=== PATIENT | female | born 1950 | race Caucasian/White ===

== ENCOUNTER → 2016-06-13 | Outpatient (CLI) | payer MEDICARE ==
[2016-06-13 10:31] LABS: Basophils # (A) 0.1 k/uL (0-0.2); Basophils % (A) 1 %; CH 31.8; CHCM 33.6; Eosinophils # (A) 0.1 k/uL (0-0.7); Eosinophils % (A) 2 %; HCT 44.9 % (34.0-46.0); HDW 2.41; Luc # (Auto) 0.09; Luc % (Auto) 2; Lymphocytes # (A) 1.8 k/uL (1.0-4.8); Lymphocytes % (A) 37 %; MCH 31.8 pg (25.0-35.0); MCHC 33.4 g/dL (31.0-37.0); MCV 95.1 fL (80.0-100.0); Mean Platelet Volume 7.3; Monocytes # (A) 0.3 k/uL (0-1.0); Monocytes % (A) 6 %; Neutrophils # (A) 2.6 k/uL (1.3-7.7); Neutrophils % (A) 52 %; RBC 4.72 m/uL (3.80-5.40); RDW 12.5 % (11.5-15.5); WBC (Perox) 4.84
[2016-06-13 10:36] LABS: ALT 32 U/L (9-52); AST 29 U/L (14-36); Alkaline Phosphatase 48 U/L (38-126); Anion Gap 11 mmol/L; Blood Urea Nitrogen 9 mg/dL (7-17); Calcium 9.8 mg/dL (8.4-10.2); Carbon Dioxide 28 mmol/L (22-30); Chloride 106 mmol/L (98-107); Cholesterol 130 mg/dL (<200); Glucose 137 mg/dL (74-99); HDL Cholesterol 52 mg/dL (40-60); Non-African American GFR(MDRD) >60 (>60 ml/min/1.73 sqM); Potassium 4.4 mmol/L (3.5-5.1); Sodium 145 mmol/L (137-145); Total Bilirubin 1.7 mg/dL (0.2-1.3); Total Protein 7.4 g/dL (6.3-8.2); Triglycerides 169 mg/dL (<150)
[2016-06-13 13:03] LABS: Hemoglobin A1C 7.6 % (4.2-6.1)
== END | disposition home or self-care (01) ==
LOC: LABWHC1 09:46
PROVIDERS: ATTEND Family Medicine
DX: E11.9 Type 2 diabetes mellitus without complications (principal)
CPT/HCPCS: 36415; 80053; 80061; 83036; 85025

== ENCOUNTER → 2016-08-10 | Outpatient (CLI) | payer MEDICARE ==
--- NOTE | 2016-08-16 08:32 | MM ---
Reason for exam: screening (asymptomatic). Last mammogram was performed 1 year ago. History: Patient is postmenopausal, history of other cancer, and had first child at age 32. Took hormonal contraceptives for 6 years. Took estrogen for 1 year. Physical Findings: A clinical breast exam by your physician is recommended on an annual basis and results should be correlated with mammographic findings. MG 3D Screening Mammo W/Cad Bilateral CC and MLO view(s) were taken. Prior study comparison: August 09, 2015, bilateral MG 3d screening mammo w/cad. There are scattered fibroglandular densities. No significant changes when compared with prior studies. ASSESSMENT: Benign, BI-RAD 2 RECOMMENDATION: Routine screening mammogram of both breasts in 1 year.
== END | disposition home or self-care (01) ==
LOC: RADMAMWWP 07:54
PROVIDERS: ATTEND Obstetrics & Gynecology
DX: Z12.31 Encounter for screening mammogram for malignant neoplasm of breast (principal)
CPT/HCPCS: 77063; G0202

== ENCOUNTER → 2016-09-13 | Outpatient (CLI) | payer MEDICARE ==
[2016-09-13 11:20] LABS: Basophils # (A) 0.1 k/uL (0-0.2); Basophils % (A) 1 %; CHCM 33.8; Eosinophils # (A) 0.5 k/uL (0-0.7); Eosinophils % (A) 8 %; HDW 2.44; Luc # (Auto) 0.16; Luc % (Auto) 3; Lymphocytes % (A) 36 %; MCH 31.1 pg (25.0-35.0); MCHC 32.7 g/dL (31.0-37.0); MCV 95.1 fL (80.0-100.0); Mean Platelet Volume 7.8; Monocytes # (A) 0.4 k/uL (0-1.0); Monocytes % (A) 7 %; Neutrophils # (A) 2.6 k/uL (1.3-7.7); Neutrophils % (A) 46 %; RBC 4.52 m/uL (3.80-5.40); RDW 13.2 % (11.5-15.5); WBC 5.7 k/uL (3.8-10.6); WBC (Perox) 6.03
[2016-09-13 11:43] LABS: ALT 31 U/L (9-52); AST 23 U/L (14-36); Alkaline Phosphatase 62 U/L (38-126); Anion Gap 10 mmol/L; Blood Urea Nitrogen 13 mg/dL (7-17); Calcium 9.5 mg/dL (8.4-10.2); Carbon Dioxide 28 mmol/L (22-30); Chloride 104 mmol/L (98-107); Cholesterol 128 mg/dL (<200); Glucose 123 mg/dL (74-99); HDL Cholesterol 48 mg/dL (40-60); Non-African American GFR(MDRD) >60 (>60 ml/min/1.73 sqM); Potassium 4.4 mmol/L (3.5-5.1); Sodium 142 mmol/L (137-145); Total Bilirubin 1.7 mg/dL (0.2-1.3); Triglycerides 126 mg/dL (<150)
[2016-09-13 14:00] LABS: Hemoglobin A1C 7.3 % (4.2-6.1)
== END | disposition home or self-care (01) ==
LOC: LABWHC1 10:44
PROVIDERS: ATTEND Family Medicine
DX: E11.9 Type 2 diabetes mellitus without complications (principal)
CPT/HCPCS: 36415; 80053; 80061; 83036; 85025

== ENCOUNTER → 2016-09-19 | Outpatient (CLI) | payer MEDICARE ==
--- NOTE | 2016-09-19 11:54 | ECHOF ---
Referral Reason:I10 htn MEASUREMENTS -------- HEIGHT: 160.0 cm WEIGHT: 70.8 kg BP: IVSd: 1.2 cm (0.6 - 1.1) LVIDd: 4.9 cm (3.9 - 5.3) LVPWd: 1.0 cm (0.6 - 1.1) IVSs: 1.4 cm LVIDs: 3.8 cm LVPWs: 1.3 cm LA Diam: 3.4 cm (2.7 - 3.8) LAESV Index (A-L): 27.70 ml/m Ao Diam: 2.6 cm (2.0 - 3.7) AV Cusp: 1.3 cm (1.5 - 2.6) LA Diam: 3.4 cm (2.7 - 3.8) MV EXCURSION: 17.701 mm (> 18.000) MV EF SLOPE: 107 mm/s (70 - 150) EPSS: 0.3 cm MV E Barry: 0.70 m/s MV DecT: 227 ms MV A Barry: 1.04 m/s MV E/A Ratio: 0.68 RAP: 5.00 mmHg RVSP: 21.27 mmHg FINDINGS -------- Sinus rhythm. This was a technically good study. LV size, wall thickness and systolic function are normal, with an EF greater than 55%. The right ventricle is normal in size. Normal LA size by volume 22+/-6 ml/m2. The right atrial size is normal. The aortic valve is trileaflet, and appears structurally normal. No aortic stenosis or regurgitation. Mild mitral regurgitation is present. Mild tricuspid regurgitation present. There is no evidence of pulmonary hypertension. The right ventricular systolic pressure, as measured by Doppler, is 21.27mmHg. There is no pulmonic regurgitation present. The aortic root size is normal. There is no pericardial effusion. CONCLUSIONS -------- 1. LV size, wall thickness and systolic function are normal, with an EF greater than 55%. 2. Mild mitral regurgitation is present. 3. Mild tricuspid regurgitation present. 4. There is no evidence of pulmonary hypertension. 5. The right ventricular systolic pressure, as measured by Doppler, is 21.27mmHg. 6. There is no pulmonic regurgitation present. KNOCKUP WORKER: Roopa Jolly [facility]
--- NOTE | 2016-09-22 12:48 | HM ---
24 HOUR DCG REPORT Patient in her diary did not have any entries. Predominant rhythm appears to be sinus with a heart rate ranging from 45 to 115 beats per minute with average heart rate of 63 beats per minute. Isolated PAC's and PVC's were noted. There were no evidence of any significant SVT, VT or bradyarrhythmia. There were no evidence of any significant pauses. Sinus rhythm with sinus arrhythmias was noted. There was some baseline artifact noted. Average heart rate was 63 beats per minute. One episode at 6:42 p.m. of about 6 beats in a row which seems to be like a paradoxical atrial tachycardia. FINAL IMPRESSION: Predominant rhythm is sinus with the average heart rate of 63 beats per minute. One short run of PAT noted. No significant ventricular arrhythmia or bradycardia was noted. Patient did not report any symptoms. MTDD
== END | disposition home or self-care (01) ==
LOC: RADECHMAIN 10:30
PROVIDERS: ATTEND Family Medicine
DX: I08.1 Rheumatic disorders of both mitral and tricuspid valves (principal); I10 Essential (primary) hypertension
CPT/HCPCS: 93225; 93226; 93306

== ENCOUNTER → 2016-10-13 | Outpatient (CLI) | payer MEDICARE ==
--- NOTE | 2016-10-16 12:52 | BD ---
EXAMINATION TYPE: MG DEXA axial skeleton. DATE OF EXAM: 10/13/2016 COMPARISON: 10.08.2014 DEXA bone scan. CLINICAL HISTORY: M85.9 KNOWN OSTEOPENIA Height: 62 Weight: 158 FRAX RISK QUESTIONS: Alcohol (3 or more units per day): NO Family History (Parent hip fracture): NO Glucocorticoids (More than 3mos): NO (Ex: prednisone, prednisolone, methylprednisolone, dexamethasone, and hydrocortisone). History of Fracture in Adulthood: NO Secondary Osteoporosis: NO 1. Type 1 Diabetes: NO 2. Hyperthyroidism: NO 3. Menopause before 45: NO 4. Malnutrition: NO 5. Chronic liver disease: NO Rheumatoid Arthritis: NO Current Tobacco Use: NO RISK FACTORS HISTORY OF: Family History of Osteoporosis: YES GREAT AUNT MATERNAL Active: YES Diet low in dairy products/other sources of calcium: NO Postmenopausal woman: 47 YRS OLD Lost more than 2 inches in height since high school: NO Hyperparathyroidism: NO Adrenal Insufficiency: NO MEDICATIONS: Thyroid Medications: YES, SYNTHROID How Lon + YRS Additional Medications: BP MEDS, DIABETIC MEDS, STATINS FOR CHOLESTEROL, CALCIUM AND VIT D IN A MULTI VITAMIN Additional History: DIABETIC, HYPERTENSION EXAM MEASUREMENTS: Bone mineral densitometry was performed using the sailsquare System. Bone mineral density as measured about the Lumbar spine is: ----- L1-L4(G/cm2): 1.253 T Score Values are as follows ----- L1: -1.2 ----- L2: 0.1 ----- L3: 1.1 ----- L4: 2.1 ----- L1-L4: 0.6 Bone mineral density has: Increased 8.4% since study of: 10.08.2014 Bone mineral density about the R hip (g/cm2): 0.952 Bone mineral density about the L hip (g/cm2): 1.030 T Score values are as follows: -----R Neck: -1.0 -----L Neck: -0.8 -----R Total: -0.4 -----L Total: 0.2 Bone mineral density has: Decreased -0.8% since study of: 10.08.2014 FRAX %'S: THERE IS A 8.4% CHANCE OF A MAJOR OSTEOPOROTIC FX AND A 0.7% CHANCE OF HIP FX......PROBAB ILITY IN 10 YRS TIME IMPRESSION: Normal (Values between +1 and -1 indicate normal bone mass). Consider repeating this study in 5 year s or sooner if there is some new clinical indication NOTE: T-SCORE=SD OF THE YOUNG ADULT MEAN.
== END | disposition home or self-care (01) ==
LOC: RADBDWWP 07:15
PROVIDERS: ATTEND Obstetrics & Gynecology
DX: M85.80 Other specified disorders of bone density and structure, unspecified site (principal)
CPT/HCPCS: 77080

== ENCOUNTER → 2017-08-14 | Outpatient (CLI) | payer MEDICARE ==
--- NOTE | 2017-08-14 14:07 | MM ---
Reason for exam: screening (asymptomatic). Last mammogram was performed 1 year ago. History: Patient is postmenopausal, history of other cancer, and had first child at age 32. Took hormonal contraceptives for 6 years. Took estrogen for 1 year. Physical Findings: A clinical breast exam by your physician is recommended on an annual basis and results should be correlated with mammographic findings. MG 3D Screening Mammo W/Cad Bilateral CC and MLO view(s) were taken. Prior study comparison: August 10, 2016, bilateral MG 3d screening mammo w/cad. August 09, 2015, bilateral MG 3d screening mammo w/cad. The breast tissue is heterogeneously dense. This may lower the sensitivity of mammography. No significant changes when compared with prior studies. ASSESSMENT: Negative, BI-RAD 1 RECOMMENDATION: Routine screening mammogram of both breasts in 1 year.
== END | disposition home or self-care (01) ==
LOC: RADMAMWWP 06:51
PROVIDERS: ATTEND Obstetrics & Gynecology
DX: Z12.31 Encounter for screening mammogram for malignant neoplasm of breast (principal)
CPT/HCPCS: 77063; 77067

== ENCOUNTER 2017-09-19 11:47 | Observation (INO) | payer MEDICARE ==
[2017-09-19] MEDS ORDERED: ASPIRIN 81 MG PO STA (12:04)
--- NOTE | 2017-09-19 12:06 | ED ---
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 She states is very minimal right now is not made any better or any worse by movement is deep breathing cough. He only thing that she can think of recently have hurt her back when she was needing for a long period time and a somewhat bent over position. No cough phlegm production fevers chills sweats no palpitations no other symptoms. She was seen in outpatient clinic and sent here for further evaluation. MD Complaint: chest pain - Related Data Home Medications Medication Instructions Recorded Confirmed Aspirin EC [Ecotrin Low Dose] 81 mg PO DAILY 09/19/17 09/19/17 Calcium Carbonate/Vitamin D3 1 tab PO DAILY 09/19/17 09/19/17 [Calcium 600-Vit D3 400 Tablet] Levothyroxine Sodium [Synthroid] 50 mcg PO DAILY 09/19/17 09/19/17 Lisinopril [Zestril] 20 mg PO DAILY 09/19/17 09/19/17 [place]-3 Fatty Acids/Fish Oil [Fish 1 cap PO DAILY 09/19/17 09/19/17 Oil 1,000 mg Softgel] Simvastatin 40 mg PO HS 09/19/17 09/19/17 metFORMIN HCL 1,000 mg PO BID 09/19/17 09/19/17 Allergies Allergy/AdvReac Type Severity Reaction Status Date / Time Sulfa (Sulfonamide Allergy Rash/Hives Verified 09/19/17 12:51 Antibiotics) Review of Systems ROS Statement: Those systems with pertinent positive or pertinent negative responses have been documented in the HPI. ROS Other: All systems not noted in ROS Statement are negative. EKG Findings - EKG Results: EKG: interpreted by TIMA, sinus rhythm (Sinus rhythm of 64. Ago 156 QRS duration 82 QT since QTC 420/435 left exodeviation inferior changes PACs) Past Medical History Past Medical History: Diabetes Mellitus, Hyperlipidemia, Hypertension, Thyroid Disorder History of Any Multi-Drug Resistant Organisms: None Reported Past Surgical History: Section, Tonsillectomy Additional Past Surgical History / Comment(s): cyst removal from right wrist Past Psychological History: No Psychological Hx Reported Smoking Status: Never smoker Past Alcohol Use History: Rare Past Drug Use History: None Reported General Exam - General Exam Comments Initial Comments: This is a well-developed well-nourished awake alert oriented 3 female Limitations: no limitations General appearance: alert, in no apparent distress Head exam: Present: atraumatic, normocephalic, normal inspection Eye exam: Present: normal appearance, PERRL, EOMI. Absent: scleral icterus, conjunctival injection, periorbital swelling ENT exam: Present: normal exam, mucous membranes moist Neck exam: Present: normal inspection. Absent: tenderness, meningismus, lymphadenopathy Respiratory exam: Present: normal lung sounds bilaterally. Absent: respiratory distress, wheezes, rales, rhonchi, stridor Cardiovascular Exam: Present: regular rate, normal rhythm, normal heart sounds. Absent: systolic murmur, diastolic murmur, rubs, gallop, clicks GI/Abdominal exam: Present: soft, normal bowel sounds. Absent: distended, tenderness, guarding, rebound, rigid Extremities exam: Present: normal inspection, full ROM, normal capillary refill. Absent: tenderness, pedal edema, joint swelling, calf tenderness Back exam: Present: normal inspection Neurological exam: Present: alert, oriented X3, CN II-XII intact Psychiatric exam: Present: normal affect, normal mood Skin exam: Present: warm, dry, intact, normal color. Absent: rash Course Vital Signs 09/19/17 09/19/17 09/19/17 11:48 12:29 13:00 Temperature 98.5 F 98.8 F Pulse Rate 73 66 61 Respiratory 18 18 16 Rate Blood Pressure 174/83 182/86 171/83 O2 Sat by Pulse 97 98 98 Oximetry 09/19/17 09/19/17 13:53 14:00 Temperature 98.3 F Pulse Rate 63 82 Respiratory 16 16 Rate Blood Pressure 179/75 177/77 O2 Sat by Pulse 99 94 L Oximetry Chest Pain MDM - MDM Review the imaging shows no acute findings. Patient did seem he is some relief from nitroglycerin she'll be admitted I did discuss the case with Dr. Richardson's office. Disposition Clinical Impression: Chest pain, Unstable angina pectoris Disposition: ADMITTED IP TO THIS HOSP Condition: Stable Referrals: Beny Richardson MD [Primary Care Provider] - 1-2 days
[2017-09-19 12:31] LABS: Basophils # (A) 0.1 k/uL (0-0.2); Basophils % (A) 1 %; Eosinophils # (A) 0.2 k/uL (0-0.7); Eosinophils % (A) 3 %; HCT 40.2 % (34.0-46.0); HGB 13.5 gm/dL (11.4-16.0); Lymphocytes % (A) 31 %; MCH 30.9 pg (25.0-35.0); MCHC 33.5 g/dL (31.0-37.0); MCV 92.3 fL (80.0-100.0); Mean Platelet Volume 7.3; Monocytes # (A) 0.4 k/uL (0-1.0); Monocytes % (A) 7 %; Neutrophils # (A) 3.6 k/uL (1.3-7.7); Neutrophils % (A) 57 %; Platelet Count 190 k/uL (150-450); RBC 4.36 m/uL (3.80-5.40); RDW 13.2 % (11.5-15.5); WBC 6.5 k/uL (3.8-10.6)
[2017-09-19 12:44] LABS: ALT 24 U/L (9-52); AST 26 U/L (14-36); Albumin 4.5 g/dL (3.5-5.0); Alkaline Phosphatase 52 U/L (38-126); Amylase 51 U/L (30-110); Anion Gap 10 mmol/L; Blood Urea Nitrogen 14 mg/dL (7-17); Calcium 9.5 mg/dL (8.4-10.2); Carbon Dioxide 24 mmol/L (22-30); Chloride 107 mmol/L (98-107); Glucose 148 mg/dL (74-99); Lipase 71 U/L (23-300); Magnesium 1.6 mg/dL (1.6-2.3); Potassium 4.5 mmol/L (3.5-5.1); Sodium 141 mmol/L (137-145); Total Bilirubin 1.2 mg/dL (0.2-1.3); Total Protein 7.2 g/dL (6.3-8.2)
--- NOTE | 2017-09-19 12:44 | XR ---
EXAMINATION TYPE: XR chest 2V DATE OF EXAM: 09/19/2017 COMPARISON: 12/08/2010 HISTORY: 67-year-old female with chest pain TECHNIQUE: PA and lateral views FINDINGS: Heart upper limits of normal in size. Mild elongation thoracic aorta. Strandy atelectasis in the lowe r lungs. IMPRESSION: No acute cardiopulmonary process.
[2017-09-19 12:46] LABS: D-Dimer 0.42 mg/L FEU (<0.60); Partial Thromboplastin Time 22.6 sec (22.0-30.0); Prothrombin Time 9.6 sec (9.0-12.0)
[2017-09-19 12:54] LABS: Creatine Kinase 34 U/L (30-135)
[2017-09-19 13:07] LABS: Creatine Kinase MB 0.5 ng/mL (0.0-2.4); Troponin I <0.012 ng/mL (0.000-0.034)
[2017-09-19] MEDS ORDERED: NITROGLYCERIN SL TABS 0.4 MG TAB SUBLINGUAL STA (13:33)
[2017-09-19] MEDS ORDERED: HEPARIN SOD,PORK IN 0.45% NACL 25,000 UNIT in 0.45% NACL 1 500ML.BAG IV SCH (15:45)
[2017-09-19] MEDS ORDERED: HEPARIN SODIUM,PORCINE 5,000 UNIT/ML 1 ML VIAL IV ONE (15:45)
[2017-09-19] MEDS ORDERED: NITROGLYCERIN SL TABS 0.4 MG TAB SUBLINGUAL PRN (15:45)
[2017-09-19] MEDS: SODIUM CHLORIDE 0.9% 1,000 ML IV SCH (18:21)
[2017-09-19] MEDS: INSULIN ASPART 100 UNIT/ML 1 ML 10 ML VIAL SQ SCH ×2 (19:48→20:13)
[2017-09-19 19:59] LABS: Creatine Kinase 31 U/L (30-135)
[2017-09-19 20:11] LABS: Creatine Kinase MB 0.4 ng/mL (0.0-2.4); Troponin I <0.012 ng/mL (0.000-0.034)
[2017-09-19 20:14] LABS: Glucose,Whole Blood 115 mg/dL (75-99)
[2017-09-19] MEDS: ATORVASTATIN 20 MG TAB PO SCH (20:16)
[2017-09-19] MEDS: metFORMIN 500 MG TAB PO SCH (20:16)
[2017-09-20 02:22] LABS: Creatine Kinase 25 U/L (30-135)
[2017-09-20 02:36] LABS: Creatine Kinase MB 0.3 ng/mL (0.0-2.4); Troponin I <0.012 ng/mL (0.000-0.034)
[2017-09-20] MEDS: LEVOTHYROXINE 50 MCG TAB PO SCH (06:10)
[2017-09-20 06:43] LABS: Glucose,Whole Blood 138 mg/dL (75-99)
--- NOTE | 2017-09-20 07:23 | P.CRDCN ---
History of Present Illness Consult date: 09/20/17 Chief complaint: Chest discomfort History of present illness: This is a pleasant 67-year-old female patient with a past medical history significant for diabetes, hypertension, dyslipidemia, presented to the emergency room complaining of chest discomfort. She was in her usual state of health until the day before yesterday when she was sitting at home and she started experiencing discomfort in between her shoulders radiated to the front of the chest. She described the discomfort as a dull kind of discomfort. No radiation to the arm or neck or shoulders. No associated symptoms whatsoever like sweating, shortness of breath, dizziness or lightheadedness, nausea or vomiting, or syncope. The discomfort lasted for about an hour and she presented to an urgent care in [place] then she was referred to the emergency department. She has been pain free since she was admitted to the hospital. The EKG showed sinus rhythm without any ischemic changes. The cardiac enzymes were checked and came in to be unremarkable. Interval of past medical history, as I mentioned earlier she does have diabetes , hypertension, dyslipidemia. The patient does not smoke. She does not have any premature coronary artery disease in her family. Past Medical History Past Medical History: Diabetes Mellitus, Hyperlipidemia, Hypertension, Thyroid Disorder Additional Past Medical History / Comment(s): start of cataracts piotr eyes, wears a bite splint History of Any Multi-Drug Resistant Organisms: None Reported Past Surgical History: Section, Tonsillectomy Additional Past Surgical History / Comment(s): cyst removal from right wrist, colonoscopy. Past Anesthesia/Blood Transfusion Reactions: Motion Sickness Smoking Status: Never smoker - Past Family History Mother Additional Family Medical History / Comment(s): pacemaker Father Family Medical History: Congestive Heart Failure (CHF), Diabetes Mellitus, Myocardial Infarction (MT) Additional Family Medical History / Comment(s): pacemaker Medications and Allergies Home Medications Medication Instructions Recorded Confirmed Type Aspirin EC [Ecotrin Low Dose] 81 mg PO DAILY 09/19/17 09/19/17 History Calcium Carbonate/Vitamin D3 1 tab PO DAILY 09/19/17 09/19/17 History [Calcium 600-Vit D3 400 Tablet] Levothyroxine Sodium [Synthroid] 50 mcg PO DAILY 09/19/17 09/19/17 History Lisinopril [Zestril] 20 mg PO DAILY 09/19/17 09/19/17 History [place]-3 Fatty Acids/Fish Oil [Fish 1 cap PO DAILY 09/19/17 09/19/17 History Oil 1,000 mg Softgel] Simvastatin 40 mg PO HS 09/19/17 09/19/17 History metFORMIN HCL 1,000 mg PO BID 09/19/17 09/19/17 History Allergies Allergy/AdvReac Type Severity Reaction Status Date / Time Sulfa (Sulfonamide Allergy Rash/Hives Verified 09/19/17 19:59 Antibiotics) Physical Exam Vitals: Vital Signs Temp Pulse Pulse Resp BP BP Pulse Ox 09/20/17 04:00 98.1 F 71 16 114/70 97 09/19/17 23:54 16 09/19/17 23:24 97.9 F 84 16 156/82 97 09/19/17 20:00 98.2 F 60 16 170/80 96 09/19/17 18:47 97.8 F 70 16 152/75 98 09/19/17 18:01 97.9 F 62 16 155/72 99 09/19/17 17:00 16 09/19/17 14:00 98.3 F 82 16 177/77 94 L 09/19/17 13:53 63 16 179/75 99 09/19/17 13:00 98.8 F 61 16 171/83 98 09/19/17 12:29 66 18 182/86 98 09/19/17 11:48 98.5 F 73 18 174/83 97 Intake and Output 09/19/17 09/20/17 09/20/17 22:59 06:59 14:59 Intake Total 141.746 Balance 141.746 Intake: Intake, IV Titration 141.746 Amount Heparin Sod,Pork in 0.45% 141.746 NaCl 25,000 unit In 0.45 % NaCl 1 500ml.bag @ 12 UNITS/KG/HR 18.61 mls/hr IV .Q24H K[facility] Rx#: [id number] Other: # Voids 1 - Constitutional General appearance: no acute distress - Respiratory Respiratory: bilateral: CTA - Cardiovascular Rhythm: regular Heart sounds: normal: S1, S2 Results 09/19/17 12:15 09/19/17 12:15 Cardiac Enzymes 09/19/17 09/19/17 09/19/17 Range/Units 12:15 12:15 19:00 AST 26 (14-36) U/L CK-MB (CK-2) 0.5 0.4 (0.0-2.4) ng/mL Troponin I <0.012 <0.012 (0.000-0.034) ng/mL 09/20/17 Range/Units 01:30 AST (14-36) U/L CK-MB (CK-2) 0.3 (0.0-2.4) ng/mL Troponin I <0.012 (0.000-0.034) ng/mL Coagulation 09/19/17 09/20/17 Range/Units 12:15 01:30 PT 9.6 (9.0-12.0) sec APTT 22.6 40.2 H (22.0-30.0) sec CBC 09/19/17 Range/Units 12:15 WBC 6.5 (3.8-10.6) k/uL RBC 4.36 (3.80-5.40) m/uL Hgb 13.5 (11.4-16.0) gm/dL Hct 40.2 (34.0-46.0) % Plt Count 190 (150-450) k/uL Comprehensive Metabolic Panel 09/19/17 Range/Units 12:15 Sodium 141 (137-145) mmol/L Potassium 4.5 (3.5-5.1) mmol/L Chloride 107 (98-107) mmol/L Carbon Dioxide 24 (22-30) mmol/L BUN 14 (7-17) mg/dL Creatinine 0.61 (0.52-1.04) mg/dL Glucose 148 H (74-99) mg/dL Calcium 9.5 (8.4-10.2) mg/dL AST 26 (14-36) U/L ALT 24 (9-52) U/L Alkaline Phosphatase 52 (38-126) U/L Total Protein 7.2 (6.3-8.2) g/dL Albumin 4.5 (3.5-5.0) g/dL Current Medications Generic Name Dose Route Start Last Admin Trade Name Freq PRN Reason Stop Dose Admin Aspirin 325 mg 09/20/17 09:00 Aspirin PO DAILY [facility] Atorvastatin Calcium 20 mg 09/19/17 21:00 09/19/17 20:16 Lipitor PO 20 mg HS [facility] Administration Calcium Carbonate 1 each 09/20/17 09:00 Oscal 500+D PO DAILY [facility] Heparin Sodium/Sodium Chloride 500 mls @ 18.61 mls/hr 09/19/17 15:45 02:17 25,000 unit/ Sodium Chloride IV 14 units/kg/hr .Q24H KIM 21.71 mls/hr Titration Protocol 12 UNITS/KG/HR Sodium Chloride 1,000 mls @ 20 mls/hr 09/19/17 15:45 09/19/17 18:21 Saline 0.9% IV 20 mls/hr .Q24H KIM Administration Insulin Aspart 0 unit 09/19/17 17:30 09/19/17 20:13 Novolog SQ Not Given ACHS [facility] Protocol Levothyroxine Sodium 50 mcg 09/20/17 06:30 09/20/17 06:10 Synthroid PO 50 mcg DAILY@0630 K[facility] Administration Lisinopril 20 mg 09/20/17 09:00 Zestril PO DAILY [facility]IM Metformin HCl 1,000 mg 09/19/17 17:30 09/19/17 20:16 Glucophage PO 1,000 mg AC-BID KIM Administration Nitroglycerin 0.4 mg 09/19/17 15:45 Nitrostat SUBLINGUAL Q5M PRN Chest Pain Intake and Output 09/19/17 09/20/17 09/20/17 22:59 06:59 14:59 Intake Total 141.746 Balance 141.746 Intake: Intake, IV Titration 141.746 Amount Heparin Sod,Pork in 0.45% 141.746 NaCl 25,000 unit In 0.45 % NaCl 1 500ml.bag @ 12 UNITS/KG/HR 18.61 mls/hr IV .Q24H [facility] Rx#: [id number] Other: # Voids 1 09/19/17 12:15 09/19/17 12:15 Assessment and Plan Assessment: Assessment #1 chest discomfort #2 diabetes #3 hypertension #4 dyslipidemia Plan #1 the patient was ruled out for acute coronary event #2 I did recommend obtaining an echocardiogram was Doppler #3 also obtain a stress test to rule out any severe underlying CAD #4 follow-up with the patient. Thank you for allowing us participate in her care and we will continue following up with the patient
[2017-09-20] MEDS ORDERED: ASPIRIN 325 MG TAB PO SCH (09:00)
[2017-09-20] MEDS ORDERED: NON-FORMULARY DRUG (Omega-3 Fatty Acids/Fish Oil [Fish Oil 1,000 Mg Softgel] 1 CAP) PO SCH (09:00)
[2017-09-20] MEDS ORDERED: AMINOPHYLLINE 500 MG/20 ML VIAL IV PRN (09:12)
[2017-09-20] MEDS ORDERED: REGADENOSON 0.4 MG/5 ML SYRINGE IV ONE (09:12)
[2017-09-20 09:21] LABS: HDL Cholesterol 54 mg/dL (40-60); Triglycerides 229 mg/dL (<150)
[2017-09-20 09:23] LABS: Cholesterol 159 mg/dL (<200); LDL Cholesterol,Calculated 59 mg/dL (0-99)
[2017-09-20] MEDS ORDERED: AMINOPHYLLINE 500 MG/20 ML VIAL IV ONE (11:05)
[2017-09-20] MEDS: INSULIN ASPART 100 UNIT/ML 1 ML 10 ML VIAL SQ SCH ×4 (11:57→20:04)
[2017-09-20] MEDS: metFORMIN 500 MG TAB PO SCH ×2 (11:59→17:37)
[2017-09-20] MEDS: CALCIUM CARB-VIT D 500MG-200UN 1 EACH TAB PO SCH (12:00)
[2017-09-20] MEDS: LISINOPRIL 20 MG TAB PO SCH (12:00)
--- NOTE | 2017-09-20 12:06 | ECHOF ---
Referral Reason:Chest pain MEASUREMENTS -------- HEIGHT: 160.0 cm WEIGHT: 77.6 kg BP: 114/70 IVSd: 1.1 cm (0.6 - 1.1) LVIDd: 4.3 cm (3.9 - 5.3) LVPWd: 1.3 cm (0.6 - 1.1) IVSs: 1.9 cm LVIDs: 3.2 cm LVPWs: 1.8 cm Ao Diam: 3.1 cm (2.0 - 3.7) AV Cusp: 1.9 cm (1.5 - 2.6) LA Diam: 3.3 cm (2.7 - 3.8) MV EXCURSION: 12.148 mm (> 18.000) MV EF SLOPE: 64 mm/s (70 - 150) EPSS: 0.9 cm MV E Barry: 0.85 m/s MV DecT: 299 ms MV A Barry: 1.14 m/s MV E/A Ratio: 0.75 RAP: 5.00 mmHg RVSP: 20.18 mmHg FINDINGS -------- Sinus rhythm. This was a technically good study. The left ventricular size is normal. There is mild concentric left ventricular hypertrophy. Overa ll left ventricular systolic function is normal with, an EF between 55 - 60 %. The right ventricle is normal in size and function. The left atrium is normal in size. The right atrium is normal in size. The aortic valve is trileaflet and appears structurally normal. There is trace mitral regurgitation. Trace tricuspid regurgitation present. The right ventricular systolic pressure, as measured by Dopp ler, is 20.18mmHg. Pulmonic valve appears structurally normal. The aortic root size is normal. Normal inferior vena cava with normal inspiratory collapse consistent with estimated right atrial pre ssure of 5 mmHg. The pericardium is normal. CONCLUSIONS -------- 1. Sinus rhythm. 2. This was a technically good study. 3. The left ventricular size is normal. 4. There is mild concentric left ventricular hypertrophy. 5. Overall left ventricular systolic function is normal with, an EF between 55 - 60 %. 6. The right ventricle is normal in size and function. 7. The left atrium is normal in size. 8. The right atrium is normal in size. 9. The aortic valve is trileaflet and appears structurally normal. 10. There is trace mitral regurgitation. 11. Trace tricuspid regurgitation present. 12. The right ventricular systolic pressure, as measured by Doppler, is 20.18mmHg. 13. Pulmonic valve appears structurally normal. 14. The aortic root size is normal. 15. Normal inferior vena cava with normal inspiratory collapse consistent with estimated right atrial pressure of 5 mmHg. 16. The pericardium is normal. LAUNDRY OPERATOR FINISHING: Carolyn Quiñones RDCS
--- NOTE | 2017-09-20 12:16 | NM ---
EXAMINATION TYPE: NM stress lexiscan cardiolite DATE OF EXAM: 09/20/2017 COMPARISON: NONE HISTORY: Chest pain TECHNIQUE: After the intravenous administration of 10.5 mCi Tc 99m Sestamibi - Cardiolite resting SP ECT images acquired 50 minutes post injection. The patient received 0.4mg Lexiscan, 25.6 mCi Tc 99m Sestamibi - Stress images obtained [address] injection FINDINGS: Review of stress and rest SPECT images demonstrates small single segment lateral wall fixed defect wi th moderate approximately 6 segment reversible defect along the anterolateral wall in the distributio n of the circumflex coronary artery. Additional small defect is seen within the anterior septal wall that is reversible. Gated analysis shows normal wall motion with an estimated left ventricular eject ion fraction of 62 %. TID is calculated at 1.04, within normal limits. IMPRESSION: 1. 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 2. Small reversible defect in the distribution of the left anterior descending coronary artery. A Yellow level critical message alert has been initiated for Santino Manriquez via the Impressto tical Results System on 09/20/2017 12:14 PM. This message alert has been sent to Santino Manriquez via the pr eferences provided by the clinician for the receipt of Radiology Critical Findings. Message ID [id number].
[2017-09-20 12:31] LABS: Glucose,Whole Blood 129 mg/dL (75-99)
[2017-09-20] MEDS ORDERED: ALPRAZolam 0.25 MG TAB PO PRN (12:42)
[2017-09-20] MEDS ORDERED: ALPRAZolam 0.5 MG TAB PO PRN (12:42)
[2017-09-20] MEDS ORDERED: NITROGLYCERIN SL TABS 0.4 MG TAB SUBLINGUAL PRN (12:42)
--- NOTE | 2017-09-20 13:47 | EST ---
EXERCISE STRESS DATE OF SERVICE: 09/20/2017 AGE: 67 SEX: Female HT: 63" WT: 171 pounds PROTOCOL: Lexiscan Cardiolite STAGE: DURATION OF EXERCISE: HEART RATE REST: 75 BLOOD PRESSURE REST: 168/88 MAXIMUM HEART RATE ACHIEVED: 118 MAXIMUM BLOOD PRESSURE: 168/88 85% MPHR: 129 100% MPHR: 152 METS: INDICATIONS: Chest pain. CLINICAL INFORMATION: STRESS DATA: Pretesting physical examination showed a heart rate of 75, pressure is 168/88 mmHg. Baseline EKG showed sinus mechanism. A 0.4 mg of Lexiscan was given to patient over 15 seconds per protocol. Max heart rate was 118 beats per minute and maximum pressure was 168/88 mmHg. Clinically, the patient did not have any symptoms and the EKG did not show any significant ST or T wave abnormalities concerning for ischemia. CONCLUSION: 1. Nondiagnostic electrocardiogram stress testing in response to exercise. 2. Please follow up on the Cardiolite portion on separate report from the radiology department. MMODL / IJN: [id number] /
--- NOTE | 2017-09-20 13:56 | HP ---
HISTORY AND PHYSICAL CHIEF COMPLAINTS: Back pain. HISTORY OF PRESENT ILLNESS: This is a 67-year-old woman with a past medical history of multiple medical problems including diabetes, hypertension, hyperlipidemia with hypothyroidism being followed by Dr. Beny Richardson in the outpatient setting, is complaining of low back pain which is dull in character, which radiates to the front. Patient came to [facility] and was admitted for further evaluation and treatment. There is no history of fever, rigors. There is no history of headache, loss of consciousness, seizures. Troponins are negative and a stress test showed possible reversible ischemia. There is no history of fever, rigors. No history of headache or loss of consciousness, seizures. PAST MEDICAL HISTORY: History of diabetes, hypertension, hyperlipidemia, hypothyroidism. MEDICATIONS: Prior to admission include home medications are: 1. Metformin 1000 mg p.o. b.i.d. 2. Simvastatin 40 mg q.h.s. 3. [place]-3 fatty acids p.o. daily. 4. Zestril 20 mg p.o. daily. 5. Synthroid 50 mcg p.o. daily. 6. Calcium with vitamin D p.o. daily. 7. Ecotrin 81 mg p.o. daily. ALLERGIES: Sulfa. FAMILY HISTORY: History of CHF, diabetes mellitus, myocardial infarction and pacemaker in the family. SOCIAL HISTORY: Occasional alcohol. No history of smoking. REVIEW OF SYSTEMS: ENT: No diminished hearing or vision. CARDIOVASCULAR: As mentioned earlier. RESPIRATION: As mentioned earlier. GI: No nausea. : No dysuria. NERVOUS SYSTEM: No numbness weakness. IMMUNOLOGY: No asthma or hayfever. MUSCULOSKELETAL: As mentioned earlier. HEMATOLOGY: No history of anemia. ENDOCRINE: No history of diabetes or hypothyroidism. CONSTITUTIONAL: As mentioned earlier. DERMATOLOGY: Negative. RHEUMATOLOGY: Negative. PSYCHIATRY: As mentioned earlier. PHYSICAL EXAMINATION: Patient is alert and oriented x3. Pulse 59, blood pressure 130/80, respirations 16, temperature 98.2, pulse ox 94% on room air. HEENT: Conjunctivae normal. Oral mucosa moist. Neck is no jugular venous distention. No lymph node enlargement. CARDIOVASCULAR SYSTEM: S1, S2, muffled. RESPIRATION: Breath sounds diminished at the bases, no rhonchi, no crackles. ABDOMEN: Soft, nontender. No mass palpable. LEGS: No edema, no swelling. NERVOUS SYSTEM: Higher functions as mentioned earlier. Moves all four limbs. No focal deficits. SKIN: No rash or bleeding. LABS: CBC normal. Glucose 129, triglycerides 229. ASSESSMENT: 1. Back and chest pain, possible unstable angina. 2. Diabetes mellitus type 2. 3. Hypertension. 4. Hyperlipidemia. 5. Hypothyroidism. 6. History of cataracts. 7. History of section. RECOMMENDATIONS: In this 67-year-old woman who presented with multiple medical issues, will monitor the patient closely. Continue with the current management and continue symptomatic treatment. Follow closely, continue with antiplatelet agents. Closely follow with Cardiology and possible cardiac cath. Guarded prognosis because of multiple complex medical issues. Further recommendations to follow. MMODL / IJN: [id number] /
--- NOTE | 2017-09-20 14:42 | CT ---
EXAMINATION TYPE: CT chest wo con DATE OF EXAM: 09/20/2017 COMPARISON: NONE HISTORY: Back pain radiating to chest. CT DLP: 263.2 mGycm. Automated Exposure Control for Dose Reduction was Utilized. TECHNIQUE: CT scan of the thorax is performed without IV contrast. FINDINGS: LUNGS: The lungs are grossly clear, there is no concerning parenchymal mass or suspicious nodule iden tified. There is a calcified right upper lobe granuloma. There is no pleural effusion or pneumothora x seen. The tracheobronchial tree is patent. MEDIASTINUM: Lack of IV contrast is noted to limit evaluation for mediastinal and especially hilar ad enopathy. There are few prominent lymph nodes measuring 9 mm in the prevascular space, 9 mm in the le ft paratracheal space, and possibly 1.0 cm in the right infrahilar region on series 3 image 33. This density is questioned to represent a lymph node with early ill-defined calcifications. There are no d efinitive greater than 1 cm hilar or mediastinal lymph nodes. No cardiomegaly or pericardial effusi on is seen. Ascending thoracic aorta is within normal limits measuring 3.2 cm as is the main pulmonar y artery measuring 2.6 cm. OTHER: No additional significant abnormality is seen. Small splenule is present adjacent to the rony ve spleen. There is low-attenuation of the hepatic parenchyma most commonly representing hepatic stea tosis. Multilevel degenerative change of the spine is noted. IMPRESSION: 1. No focal consolidation, pneumothorax or thoracic aortic aneurysm. 2. Right infrahilar density possibly related to an early calcifying lymph node (benign pulmonary gran ulomas are seen) that is upper limits of normal and other prominent mediastinal lymph nodes. Short-te rm follow-up is recommended in 3 months to ensure stability. 3. Incidentally noted hepatic steatosis.
[2017-09-20 17:40] LABS: Glucose,Whole Blood 137 mg/dL (75-99)
[2017-09-20 17:44] LABS: Appearance,Urine Clear (Clear); Bilirubin,Urine Negative (Negative); Blood,Urine Negative (Negative); Color,Urine Light Yellow; Glucose,Urine (UA) Negative (Negative); Ketones,Urine Negative (Negative); Leukocyte Esterase,Urine Negative (Negative); Nitrite,Urine Negative (Negative); PH, Urine 6.5 (5.0-8.0); Protein,Urine Negative (Negative); Specific Gravity,Urine 1.012 (1.001-1.035); Urobilinogen,Urine <2.0 mg/dL (<2.0)
[2017-09-20 19:19] VITALS: RESP 18
[2017-09-20] MEDS: SODIUM CHLORIDE 0.9% 1,000 ML IV SCH (19:51)
[2017-09-20] MEDS ORDERED: ACETAMINOPHEN TAB 325 MG TAB PO PRN (19:58)
[2017-09-20] MEDS: ATORVASTATIN 20 MG TAB PO SCH (20:03)
[2017-09-20 20:06] LABS: Glucose,Whole Blood 153 mg/dL (75-99)
[2017-09-20 23:54] VITALS: TEMP 98.2
[2017-09-21] MEDS: INSULIN ASPART 100 UNIT/ML 1 ML 10 ML VIAL SQ SCH ×2 (06:43→14:49)
[2017-09-21] MEDS: metFORMIN 500 MG TAB PO SCH (06:43)
[2017-09-21] MEDS: LEVOTHYROXINE 50 MCG TAB PO SCH (06:48)
[2017-09-21] MEDS: CALCIUM CARB-VIT D 500MG-200UN 1 EACH TAB PO SCH (06:48)
[2017-09-21] MEDS: LISINOPRIL 20 MG TAB PO SCH (06:48)
[2017-09-21] MEDS ORDERED: MIDAZOLAM 2 MG/2 ML VIAL ONE (07:20)
[2017-09-21] MEDS ORDERED: VERAPAMIL 2.5 MG/ML 2 ML AMP ONE (07:20)
--- NOTE | 2017-09-21 07:45 | P.PN ---
Subjective Progress Note Date: 09/21/17 Principal diagnosis: Chest discomfort/abnormal stress test This is a pleasant 67-year-old female patient with a past medical history significant for diabetes, hypertension, dyslipidemia, presented to the emergency room complaining of chest discomfort. She was in her usual state of health until the day before yesterday when she was sitting at home and she started experiencing discomfort in between her shoulders radiated to the front of the chest. She described the discomfort as a dull kind of discomfort. No radiation to the arm or neck or shoulders. No associated symptoms whatsoever like sweating, shortness of breath, dizziness or lightheadedness, nausea or vomiting, or syncope. The discomfort lasted for about an hour and she presented to an urgent care in [place] then she was referred to the emergency department. She has been pain free since she was admitted to the hospital. The EKG showed sinus rhythm without any ischemic changes. The cardiac enzymes were checked and came in to be unremarkable. The patient underwent an echocardiogram which revealed normal LV function without significant valvular abnormalities. She underwent a myocardial perfusion imaging stress test and that revealed myocardial infarction in the distribution of the left circumflex coronary artery with rito-infarct ischemia as well as ischemia in the distribution of the left anterior descending artery. Giving the significant abnormalities on the stress test I do recommend proceeding with a heart catheterization to rule out any severe underlying coronary artery disease. The procedure in details was discussed with the patient and her family at bedside, her daughter and her . The patient is going to undergo a heart catheterization this manager costing. Objective - Vital Signs Vital signs: Vital Signs Temp 98.2 F 09/21/17 03:28 Pulse 60 09/21/17 03:28 Resp 18 09/21/17 03:28 BP 125/64 09/21/17 03:28 Pulse Ox 97 09/21/17 03:28 Intake & Output 09/20/17 09/21/17 09/21/17 18:59 06:59 18:59 Intake Total 300 Balance 300 Weight 77.564 kg Intake: Oral 300 Other: Voiding Method Toilet Toilet # Voids 1 1 - Constitutional General appearance: Present: no acute distress - Respiratory Respiratory: bilateral: CTA - Cardiovascular Rhythm: regular Heart sounds: normal: S1, S2 - Labs CBC & Chem 7: 09/19/17 12:15 08/08/18 12:15 Labs: Abnormal Lab Results - Last 24 Hours (Table) 09/20/17 09/20/17 09/20/17 Range/Units 08:08 12:16 17:27 POC Glucose (mg/dL) 129 H 137 H (75-99) mg/dL Triglycerides 229 H (<150) mg/dL 09/20/17 Range/Units 20:00 POC Glucose (mg/dL) 153 H (75-99) mg/dL Triglycerides (<150) mg/dL Assessment and Plan Assessment: Assessment #1 chest discomfort #2 diabetes #3 hypertension #4 dyslipidemia Plan #1 the patient was ruled out for acute coronary event #2 the abnormalities on the stress test was reviewed with the patient's and her family #3 I am proceeding with a heart catheterization to rule out any severe underlying coronary artery disease. Thank you for allowing us participate in her care and we will continue following up with the patient
[2017-09-21] MEDS ORDERED: HEPARIN SODIUM 1,000 UN/ML (10ML VL) ONE (07:54)
[2017-09-21] MEDS ORDERED: MIDAZOLAM 2 MG/2 ML VIAL IV ONE (08:02)
[2017-09-21] MEDS ORDERED: LIDOCAINE 1% INJ 10MG/ML (20 ML MDV) SQ ONE (08:02)
[2017-09-21] MEDS: VERAPAMIL SYRINGE (5 MG/10 ML) INTRAARTER ONE ×2 (08:04→08:25)
[2017-09-21] MEDS ORDERED: HEPARIN SODIUM 1,000 UN/ML (10ML VL) IV ONE ×2 (08:06→08:22)
[2017-09-21] MEDS ORDERED: RX INFO: IV CONTRAST WAS GIVEN 1 EACH MISC MISCELLANE PRN (08:22)
[2017-09-21] MEDS ORDERED: IOPAMIDOL-370 125ML BTL INJ ONE (08:25)
[2017-09-21] MEDS ORDERED: IV FLUID CONTINUATION 1,000 ML IV ONE (08:26)
[2017-09-21] MEDS ORDERED: SODIUM CHLORIDE 0.9% 1,000 ML IV SCH (08:30)
--- NOTE | 2017-09-21 08:42 | CC ---
CARDIAC CATHETERIZATION REPORT DATE OF SERVICE: September 21, 2017. PERFORMING PHYSICIAN: Santino Manriquez MD, equipment validation specialist. PROCEDURE PERFORMED: 1. Selective right and left coronary angiogram. 2. Left heart catheterization. INDICATION: This is a pleasant 67-year-old female patient with diabetes, hypertension, and dyslipidemia presented to the hospital with chest discomfort. She was ruled out for acute coronary event. She underwent a myocardial perfusion imaging stress test and that revealed infarct in the left circumflex distribution and ischemia in the LAD territory. Because of that, a heart catheterization was recommended. APPROACH: Right radial artery. COMPLICATION: None. LEVEL OF SEDATION: Moderate with sedation length of 18 minutes. PROCEDURE DESCRIPTION: After obtaining an informed consent, the patient was brought to cardiac analyst microbiology lab. The right radial artery was cannulated using micropuncture technique, the micropuncture wire passed easily then I placed a 6-[place] sheath in the right radial artery. I gave the patient after that 2 mg of verapamil IA and and 8000 units of heparin IV. After that I did selective right and left coronary angiogram using JR4 and JL3.5 catheters. Left heart catheterization was performed using a 6-[place] pigtail catheter. The procedure was completed without any complication. SELECTIVE CORONARY ANGIOGRAM: 1. The RCA is a large caliber vessel. It is a dominant vessel. It is angiographically normal. It bifurcates into PDA and PLV branches both are angiographically normal. 2. The left main is normal. It bifurcates into the left circumflex and left anterior descending artery. 3. The left circumflex is a large caliber vessel. It is a nondominant vessel. The left circumflex is angiographically normal. In the midportion gives rise into a large OM branch which bifurcates into 2 separate branches. The left circumflex after that becomes a small caliber vessel. The left circumflex overall is angiographically normal. 4. The LAD: The proximal LAD is normal. Gives rise into the first and second diagonal branches and both are angiographically normal. The mid and distal left LAD appeared to be angiographically normal. HEMODYNAMICS: The left ventricular end-diastolic pressure was 12 mmHg and no gradient was identified across the aortic valve. CONCLUSION: 1. Normal coronary angiogram. 2. Normal left ventricular end-diastolic pressure. POSTPROCEDURE MANAGEMENT: Medical treatment and follow up with the patient. MMODL / IJN: [id number] /
--- NOTE | 2017-09-21 08:48 | LTR ---
September 21, 2017 Re: Jody Gonzalez. Dear Dr. Richardson: Ms. Jody Gonzalez presented to the hospital complaining of chest discomfort and she was ruled out for acute coronary event. She underwent a stress test and that revealed ischemia, but subsequently the heart catheterization did not reveal any coronary artery disease. I want to thank you for allowing me to participate in her care and please do not hesitate to call if you have any question or concern. Sincerely, MD ERIK Mccracken / DONALD: [id number] /
[2017-09-21 08:53] LABS: Glucose,Whole Blood 168 mg/dL (75-99)
[2017-09-21] MEDS ORDERED: SODIUM CHLORIDE 0.9% 1,000 ML in EMPTY BAG 1 BAG IV ONE (09:00)
[2017-09-21] MEDS ORDERED: ATORVASTATIN 80 MG TAB PO ONE (09:00)
[2017-09-21] MEDS ORDERED: ASPIRIN 325 MG TAB PO ONE (09:00)
[2017-09-21 11:17] VITALS: BP 133/66; PULSE 58
[2017-09-21 12:26] LABS: Glucose,Whole Blood 131 mg/dL (75-99)
--- NOTE | 2017-09-22 10:25 | DS ---
DISCHARGE SUMMARY DATE OF SERVICE: 09/22/2017. FINAL DIAGNOSES: 1. Upper back pain and chest pain, possible musculoskeletal, status post cardiac cath showing normal coronary arteries. 2. Diabetes type 2. 3. Right hilar lymph node, small. 4. Hypertension. 5. Hyperlipidemia. 6. Hypothyroidism. 7. History of cataracts. 8. History of section. DISCHARGE CONDITION: The patient is discharged in stable condition with guarded prognosis. HISTORY OF PRESENT ILLNESS: This 67-year-old woman with a past medical history of multiple medical issues, was admitted with upper back discomfort, chest discomfort. Myocardial infarction was ruled out. Cardiac cath was done which was normal. CT scan showed small hilar lymph node, recommend [address] Richardson. PHYSICAL EXAM: On exam, vital signs are stable. CARDIAC: S1 and S2. ABDOMEN: Soft. NERVOUS SYSTEM: No focal deficits. DISCHARGE DIET: Cardiac diet. ACTIVITY: As tolerated. FOLLOWUP: 1. Followup with Dr. Richardson in 2 to 3 days. 2. Followup with sales marketing as advised. MEDICATIONS: 1. Ecotrin 81 mg daily. 2. Calcium carbonate 1 p.o. daily. 3. Synthroid 50 mcg p.o. daily. 4. Zestril 20 mg daily. 5. Metformin 1000 mg p.o. b.i.d. 6. Fish oil 1 p.o. daily. 7. Simvastatin 40 mg at bedtime. Once again, the patient is discharged in stable condition with guarded prognosis. MMODL / IJN: [id number] /
== END 2017-09-21 14:45 ==
LOC: EC 11:47 → 3OBS 15:45
PROVIDERS: ADMIT Family Medicine; ATTEND Family Medicine
DX: R07.89 Other chest pain (principal); M54.5 Low back pain; M54.6 Pain in thoracic spine; I10 Essential (primary) hypertension; E78.5 Hyperlipidemia, unspecified; I89.9 Noninfective disorder of lymphatic vessels and lymph nodes, unspecified; R94.31 Abnormal electrocardiogram [ECG] [EKG]; R94.39 Abnormal result of other cardiovascular function study; E11.9 Type 2 diabetes mellitus without complications; Z82.49 Family history of ischemic heart disease and other diseases of the circulatory system; E03.9 Hypothyroidism, unspecified; H26.9 Unspecified cataract; Z79.899 Other long term (current) drug therapy; Z79.82 Long term (current) use of aspirin; Z79.890 Hormone replacement therapy; Z79.84 Long term (current) use of oral hypoglycemic drugs; Z88.2 Allergy status to sulfonamides
CPT/HCPCS: 99285 ×2; 96366 ×2; 96376; 96365; 36415; 93005; 93017; 93306; 93458; 85379; 83880; 80061; 80053; 82150; 82550 ×2; 82553 ×2; 83690; 83735; 84484 ×2; 85025; 85610; 85730 ×2; 81003; 71046; 71250; 78452; G0378 ×3; C1894; A9500; J2250; J1644 ×3; J0280; J2001; J2785; Q9967

== ENCOUNTER → 2017-09-24 | Outpatient (CLI) | payer MEDICARE ==
[2017-09-24 11:21] LABS: Basophils # (A) 0.1 k/uL (0-0.2); Basophils % (A) 1 %; Eosinophils # (A) 0.1 k/uL (0-0.7); Eosinophils % (A) 3 %; HCT 39.5 % (34.0-46.0); HGB 13.4 gm/dL (11.4-16.0); Lymphocytes # (A) 1.6 k/uL (1.0-4.8); Lymphocytes % (A) 33 %; MCH 31.7 pg (25.0-35.0); MCV 93.2 fL (80.0-100.0); Mean Platelet Volume 7.6; Monocytes # (A) 0.3 k/uL (0-1.0); Monocytes % (A) 7 %; Neutrophils # (A) 2.6 k/uL (1.3-7.7); Neutrophils % (A) 54 %; Platelet Count 186 k/uL (150-450); RBC 4.23 m/uL (3.80-5.40); RDW 13.2 % (11.5-15.5); WBC 4.8 k/uL (3.8-10.6)
[2017-09-24 11:35] LABS: Anion Gap 8 mmol/L; Blood Urea Nitrogen 20 mg/dL (7-17); Calcium 9.5 mg/dL (8.4-10.2); Carbon Dioxide 28 mmol/L (22-30); Chloride 103 mmol/L (98-107); Glucose 215 mg/dL (74-99); Potassium 4.5 mmol/L (3.5-5.1); Sodium 139 mmol/L (137-145)
== END | disposition home or self-care (01) ==
LOC: LABWHC1 10:53
PROVIDERS: ATTEND Nurse Practitioner
DX: R07.9 Chest pain, unspecified (principal)
CPT/HCPCS: 36415; 80048; 85025

== ENCOUNTER → 2017-12-17 | Outpatient (CLI) | payer MEDICARE ==
[2017-12-17 14:12] LABS: Blood Urea Nitrogen 15 mg/dL (7-17)
--- NOTE | 2017-12-17 14:56 | CT ---
EXAMINATION TYPE: CT chest wo/w con DATE OF EXAM: 12/17/2017 COMPARISON: 09/20/2017 HISTORY: enlarged lymph nodes in the chest CT DLP: 668.10 mGycm Automated exposure control for dose reduction was used. CONTRAST: CT scan of the chest is performed without and with IV Contrast, patient injected with 100 mL of Isovu e 300. FINDINGS: LUNGS: The lungs are grossly clear, there is no concerning parenchymal mass or nodule identified. T here is no pleural effusion or pneumothorax seen. The tracheobronchial tree is patent. 3 mm right up per nodule stable. Subsegmental consolidation posteriorly within the lungs are suggestive of dependen t atelectasis. MEDIASTINUM: There again is adenopathy within the mediastinum with the largest lymph node measuring s hort axis of 1 cm. Remaining lymph nodes appear to measure less than 1 cm compatible with shotty son opathy. Findings are stable relative the previous exam. Right-sided infrahilar lymph node with calcif ication measures 1.0 cm and is stable. Shotty adenopathy in the hilum stable OTHER: Hypertrophic and degenerative change of the spine. Correlate for hepatic steatosis. Accessory spleen noted. IMPRESSION: 1. Right infrahilar density likely representing lymph node and mediastinal lymph nodes are stable in size with only a couple lymph node measuring pathologic in short axis of 1 cm. Findings are stable. 2. Stable 3 mm right upper lobe pulmonary nodule.
== END ==
LOC: RADCTMAIN 13:20
PROVIDERS: ATTEND Family Medicine
DX: R91.8 Other nonspecific abnormal finding of lung field (principal)
CPT/HCPCS: 82565; 84520; 71270; 36415; Q9967

== ENCOUNTER → 2018-11-08 | Outpatient (CLI) | payer MEDICARE ==
--- NOTE | 2018-11-08 13:24 | MM ---
Reason for exam: screening (asymptomatic). Last mammogram was performed 1 year and 3 months ago. History: Patient is postmenopausal, has history of other cancer at age 56, and had first child at age 32. Took hormonal contraceptives for 6 years. Took estrogen for 1 year. Physical Findings: A clinical breast exam by your physician is recommended on an annual basis and results should be correlated with mammographic findings. MG 3D Screening Mammo W/Cad Bilateral CC and MLO view(s) were taken. Prior study comparison: August 14, 2017, bilateral MG 3d screening mammo w/cad. August 10, 2016, bilateral MG 3d screening mammo w/cad. The breast tissue is heterogeneously dense. This may lower the sensitivity of mammography. No significant changes when compared with prior studies. ASSESSMENT: Benign, BI-RAD 2 RECOMMENDATION: Routine screening mammogram of both breasts in 1 year.
== END | disposition home or self-care (01) ==
LOC: RADMAMWWP 07:45
PROVIDERS: ATTEND Obstetrics & Gynecology
DX: Z12.31 Encounter for screening mammogram for malignant neoplasm of breast (principal)
CPT/HCPCS: 77063; 77067

== ENCOUNTER → 2019-01-27 | Outpatient (CLI) | payer MEDICARE ==
[2019-01-27 17:26] LABS: African American GFR (CKD) 102.5 (60.0-200.0); Albumin 4.3 g/dL (3.80-4.90); Albumin/Globulin Ratio 2.39 (1.60-3.17); BUN/Creat Ratio 15.71 Ratio (12.00-20.00); Calcium 9.3 mg/dL (8.7-10.3); Globulin 1.8 g/dL (1.6-3.3); Non-African American GFR(CKD) 88.4 (60.0-200.0); Total Bilirubin 1.3 mg/dL (0.2-1.2); Total Protein 6.1 g/dL (6.2-8.2)
[2019-01-27 17:35] LABS: T4, Free (Free Thyroxine) 1.4 ng/dL (0.80-1.80)
[2019-01-27 20:30] LABS: Hemoglobin A1C 7.4 % (4.0-6.0)
== END | disposition home or self-care (01) ==
LOC: LABWHC1 10:52
PROVIDERS: ATTEND Midwife
DX: E11.9 Type 2 diabetes mellitus without complications (principal); E55.9 Vitamin D deficiency, unspecified; I10 Essential (primary) hypertension; E03.9 Hypothyroidism, unspecified
CPT/HCPCS: 36415; 80053; 82043; 82306; 82570; 83036; 84439; 84443; 84481

== ENCOUNTER → 2019-12-15 | Outpatient (CLI) | payer MEDICARE ==
[2019-12-15 12:38] LABS: Basophils # (A) 0.1 k/uL (0-0.2); Basophils % (A) 2 %; Eosinophils # (A) 0.1 k/uL (0-0.7); Eosinophils % (A) 2 %; HCT 42.1 % (34.0-46.0); HGB 13.7 gm/dL (11.4-16.0); Lymphocytes # (A) 1.9 k/uL (1.0-4.8); Lymphocytes % (A) 37 %; MCH 31.8 pg (25.0-35.0); MCHC 32.5 g/dL (31.0-37.0); MCV 97.9 fL (80.0-100.0); Mean Platelet Volume 7.6; Monocytes # (A) 0.3 k/uL (0-1.0); Monocytes % (A) 7 %; Neutrophils # (A) 2.6 k/uL (1.3-7.7); Neutrophils % (A) 51 %; Platelet Count 155 k/uL (150-450); RDW 12.3 % (11.5-15.5); WBC 5.1 k/uL (3.8-10.6)
[2019-12-15 19:57] LABS: T4, Free (Free Thyroxine) 1.3 ng/dL (0.80-1.80)
[2019-12-15 20:05] LABS: African American GFR (CKD) 86.6 (60.0-200.0); Albumin 4.4 g/dL (3.80-4.90); Albumin/Globulin Ratio 2.2 (1.60-3.17); BUN/Creat Ratio 13.75 Ratio (12.00-20.00); Calcium 9.6 mg/dL (8.7-10.3); Chol/HDL Ratio 2.73; LDL Cholesterol,Calculated 51.8 mg/dL (0.0-131.0); Non-African American GFR(CKD) 74.7 (60.0-200.0); Potassium 4.6 mmol/L (3.5-5.5); Total Bilirubin 1.4 mg/dL (0.3-1.2); Total Protein 6.4 g/dL (6.2-8.2); VLDL Calculation 24.2 mg/dL (5.00-40.00)
[2019-12-15 22:26] LABS: Hemoglobin A1C 6.9 % (4.0-6.0)
== END | disposition home or self-care (01) ==
LOC: LABWHC1 10:49
PROVIDERS: ATTEND Nurse Practitioner Family
DX: I10 Essential (primary) hypertension (principal); E78.5 Hyperlipidemia, unspecified; E03.9 Hypothyroidism, unspecified; E11.9 Type 2 diabetes mellitus without complications
CPT/HCPCS: 36415; 80053; 80061; 83036; 84439; 84443; 84481; 85025

== ENCOUNTER → 2020-02-25 | Outpatient (CLI) | payer MEDICARE ==
--- NOTE | 2020-02-25 15:01 | BD ---
EXAMINATION TYPE: Axial Bone Density DATE OF EXAM: 02/25/2020 COMPARISON: 10/13/2016 CLINICAL HISTORY: Post menopausal screening Height: 62 IN Weight: 160 LBS RISK FACTORS HISTORY OF: Active: YES Diet low in dairy products/other sources of calcium: YES Postmenopausal woman: AGE 47 Take estrogen and/or progesterone medications: NOT NOW How long: TOOK CONTROL FOR 6 YEARS MEDICATIONS: Thyroid Medications: YES Which medication: Levothyroxine How Lon + YEARS Additional Medications: CALCIUM, VIT D, LEVOTHYROXINE,METFORMIN, CHOLESTEROL MEDS, BLOOD PRESSURE MED S EXAM MEASUREMENTS: Bone mineral densitometry was performed using the [employer] System. Bone mineral density as measured about the Lumbar spine is: ----- L1-L4(G/cm2): 1.328 T Score Values are as follows: ----- L2: 2.2 ----- L3: 2.4 ----- L4: 1.3 ----- L1-L4: 1.2 Bone mineral density has: Increased 7.4% since study of: 10/13/2016 Bone mineral density about the R hip (g/cm2): 0.852 Bone mineral density about the L hip (g/cm2): 0.874 T Score values are as follows: -----R Neck: -1.3 -----L Neck: -1.2 -----R Total: -0.8 -----L Total: -0.2 Bone mineral density has: Decreased -4.2% since study of: 10/13/2016 IMPRESSION: Osteopenia (T Score between -2.5 and -1). There is slightly increased risk of fracture and the patient may be considered for treatment. Re-Screen 2-5 years. NOTE: T-SCORE=SD OF THE YOUNG ADULT MEAN.
--- NOTE | 2020-02-26 11:15 | MM ---
Reason for exam: screening (asymptomatic). Last mammogram was performed 1 year and 4 months ago. History: Patient is postmenopausal, has history of other cancer at age 56, and had first child at age 32. Took hormonal contraceptives for 6 years. Took estrogen for 1 year. Physical Findings: A clinical breast exam by your physician is recommended on an annual basis and results should be correlated with mammographic findings. MG 3D Screening Mammo W/Cad Bilateral CC and MLO view(s) were taken. Prior study comparison: November 08, 2018, bilateral MG 3d screening mammo w/cad. August 14, 2017, bilateral MG 3d screening mammo w/cad. The breast tissue is heterogeneously dense. This may lower the sensitivity of mammography. There are benign appearing round calcifications bilaterally. There is chronic nodularity in the right breast. There is no discrete abnormality. ASSESSMENT: Benign, BI-RAD 2 RECOMMENDATION: Routine screening mammogram of both breasts in 1 year.
== END | disposition home or self-care (01) ==
LOC: RADBDWWP 07:54
PROVIDERS: ATTEND Family Medicine
DX: Z12.31 Encounter for screening mammogram for malignant neoplasm of breast (principal); Z13.820 Encounter for screening for osteoporosis; M85.80 Other specified disorders of bone density and structure, unspecified site; Z78.0 Asymptomatic menopausal state
CPT/HCPCS: 77063; 77067; 77080

== ENCOUNTER → 2020-11-12 | Outpatient (CLI) | payer MEDICARE ==
[2020-11-12 11:21] LABS: Basophils # (A) 0.05 X 10*3/uL (0.00-0.10); Eosinophils # (A) 0.18 X 10*3/uL (0.04-0.35); Eosinophils % (A) 3.6 %; HCT 41.2 % (37.2-46.3); HGB 13.7 g/dL (12.0-15.0); Lymphocytes # (A) 1.96 X 10*3/uL (0.90-5.00); Lymphocytes % (A) 39.4 %; MCH 31.6 pg (27.0-32.0); MCHC 33.3 g/dL (32.0-37.0); MCV 95.2 fL (80.0-97.0); Mean Platelet Volume 10.9 fL (9.5-12.2); Monocytes # (A) 0.52 X 10*3/uL (0.20-1.00); Monocytes % (A) 10.5 %; Neutrophils # (A) 2.25 X 10*3/uL (1.80-7.70); Neutrophils % (A) 45.3 %; Platelet Count 198 X 10*3/uL (140-440); RBC 4.33 X 10*6/uL (4.10-5.20); RDW 11.9 % (11.5-14.5); WBC 4.97 X 10*3/uL (4.50-10.00)
[2020-11-12 15:19] LABS: African American GFR (CKD) 116.6 (60.0-200.0); Albumin 4.2 g/dL (3.8-4.9); Albumin/Globulin Ratio 1.79 (1.60-3.17); BUN/Creat Ratio 23.84 Ratio (12.00-20.00); Blood Urea Nitrogen 10.8 mg/dL (9.0-27.0); Calcium 9.4 mg/dL (8.7-10.3); Carbon Dioxide 25.3 mmol/L (21.6-31.8); Chol/HDL Ratio 2.71 Ratio; Globulin 2.3 g/dL (1.6-3.3); HDL Cholesterol 39.9 mg/dL (40.00-60.00); LDL Cholesterol,Calculated 37.7 mg/dL (0.0-131.0); Non-African American GFR(CKD) 100.6 (60.0-200.0); Potassium 4.3 mmol/L (3.5-5.5); T4, Free (Free Thyroxine) 1.6 ng/dL (0.800-1.800); Total Bilirubin 0.8 mg/dL (0.30-1.20); Total Protein 6.5 g/dL (6.2-8.2); VLDL Calculation 30.4 mg/dL (5.00-40.00)
== END | disposition home or self-care (01) ==
LOC: LABWHC1 07:17
PROVIDERS: ATTEND Nurse Practitioner
DX: E11.9 Type 2 diabetes mellitus without complications (principal)
CPT/HCPCS: 36415; 80053; 80061; 83036; 84439; 84443; 85025

== ENCOUNTER → 2021-11-29 | Outpatient (CLI) | payer MEDICARE ==
--- NOTE | 2021-11-30 09:36 | MM ---
Reason for Exam: Screening (asymptomatic). Last mammogram was performed 1 year(s) and 9 month(s) ago. Patient History: Menarche at age 11. First Full-Term at age 32. Late child-bearing (after 30). Postmenopausal. Patient has history of breast feeding. Patient used Estrogen for 1 year. Patient used Hormonal Contraceptives for 6 years. Risk Values: Nichole 5 year model risk: 2.4%. NCI Lifetime model risk: 6.3%. Prior Study Comparison: 08/14/2017 Bilateral Screening Mammogram, [facility]. 11/08/2018 Bilateral Screening Mammogram, [facility]. 02/25/2020 Bilateral Screening Mammogram, [facility]. Tissue Density: The breast tissue is heterogeneously dense. This may lower the sensitivity of mammography. Findings: Analyzed By CAD. There is no suspicious group of microcalcifications or new suspicious mass in either breast. Stable chronic nodularity within the right breast. No significant change from prior exams. Overall Assessment: Benign, BI-RAD 2 Management: Screening Mammogram of both breasts in 1 year. A clinical breast exam by your physician is recommended on an annual basis and results should be correlated with mammographic findings. Electronically signed and approved by: Ashish Winston D.O.
--- NOTE | 2021-11-30 09:36 | MM ---
Reason for Exam: Screening (asymptomatic). Last mammogram was performed 1 year(s) and 9 month(s) ago. Patient History: Menarche at age 11. First Full-Term at age 32. Late child-bearing (after 30). Postmenopausal. Patient has history of breast feeding. Patient used Estrogen for 1 year. Patient used Hormonal Contraceptives for 6 years. Risk Values: Nichole 5 year model risk: 2.4%. NCI Lifetime model risk: 6.3%. Prior Study Comparison: 08/14/2017 Bilateral Screening Mammogram, [facility]. 11/08/2018 Bilateral Screening Mammogram, [facility]. 02/25/2020 Bilateral Screening Mammogram, [facility]. Tissue Density: The breast tissue is heterogeneously dense. This may lower the sensitivity of mammography. Findings: Analyzed By CAD. There is no suspicious group of microcalcifications or new suspicious mass in either breast. Stable chronic nodularity within the right breast. No significant change from prior exams. Overall Assessment: Benign, BI-RAD 2 Management: Screening Mammogram of both breasts in 1 year. A clinical breast exam by your physician is recommended on an annual basis and results should be correlated with mammographic findings. Electronically signed and approved by: Ashish Winston D.O.
== END | disposition home or self-care (01) ==
LOC: RADMAMWWP 07:59
PROVIDERS: ATTEND Family Medicine
DX: Z12.31 Encounter for screening mammogram for malignant neoplasm of breast (principal); Z78.0 Asymptomatic menopausal state
CPT/HCPCS: 77063; 77067

== ENCOUNTER → 2022-01-09 | Outpatient (CLI) | payer MEDICARE ==
[2022-01-10 00:02] LABS: Basophils # (A) 0.04 X 10*3/uL (0.00-0.10); Basophils % (A) 0.7 %; Eosinophils # (A) 0.05 X 10*3/uL (0.04-0.35); Eosinophils % (A) 0.8 %; HCT 42.4 % (37.2-46.3); HGB 13.9 g/dL (12.0-15.0); Immature Grans, Automated 0.3 %; Lymphocytes # (A) 2.08 X 10*3/uL (0.90-5.00); Lymphocytes % (A) 34.6 %; MCH 31.5 pg (27.0-32.0); MCHC 32.8 g/dL (32.0-37.0); MCV 96.1 fL (80.0-97.0); Mean Platelet Volume 11.2 fL (9.5-12.2); Monocytes # (A) 0.48 X 10*3/uL (0.20-1.00); NRBC Per 100 WBC 0 /100 WBCS (0.0-0.0); Neutrophils # (A) 3.35 X 10*3/uL (1.80-7.70); Neutrophils % (A) 55.6 %; Platelet Count 165 X 10*3/uL (140-440); RBC 4.41 X 10*6/uL (4.10-5.20); RDW 12.4 % (11.5-14.5); WBC 6.02 X 10*3/uL (4.50-10.00)
[2022-01-10 00:37] LABS: ALT 25 U/L (8-44); AST 34 U/L (13-35); Albumin 4.3 g/dL (3.8-4.9); Alkaline Phosphatase 60 U/L (41-126); BUN/Creat Ratio 15.42 Ratio (12.00-20.00); Blood Urea Nitrogen 11.7 mg/dL (9.0-27.0); Calcium 9.4 mg/dL (8.7-10.3); Carbon Dioxide 26.4 mmol/L (20.0-27.5); Chloride 103 mmol/L (96-109); Chol/HDL Ratio 2.84 Ratio; Globulin 2.2 g/dL (1.6-3.3); Glucose 181 mg/dL (70-110); Non-African American GFR(CKD) 78.5 (60.0-200.0); Sodium 143 mmol/L (135-145); Total Protein 6.5 g/dL (6.2-8.2)
== END | disposition home or self-care (01) ==
LOC: LABWHC1 13:58
PROVIDERS: ATTEND Family Medicine
DX: E03.9 Hypothyroidism, unspecified (principal); E11.36 Type 2 diabetes mellitus with diabetic cataract
CPT/HCPCS: 36415; 80053; 80061; 83036; 84443; 84481; 85025

== ENCOUNTER → 2022-03-17 | Outpatient (CLI) | payer MEDICARE ==
--- NOTE | 2022-03-17 08:46 | BD ---
EXAMINATION TYPE: Axial Bone Density DATE OF EXAM: 03/17/2022 COMPARISON: 02/25/2020 CLINICAL HISTORY: 72 years year old Female. ICD-10 CODE: Z78.0 Asymptomatic menopausal state Height: 61.5 IN Weight: 156 LBS RISK FACTORS HISTORY OF: Active: YES Diet low in dairy products/other sources of calcium: YES Postmenopausal woman: AGE 47 Take estrogen and/or progesterone medications: NOT NOW How long: CONTROL FOR 5 YEARS MEDICATIONS: Thyroid Medications: YES Which medication: Synthroid How Lon+ YEARS Additional Medications: CALCIUM, VIT D, SYNTHROID, METFORMIN, SIMVASTATIN, LISINOPRIL, EXAM MEASUREMENTS: Bone mineral densitometry was performed using the [employer] System. Bone mineral density as measured about the Lumbar spine is: ----- L1-L4(G/cm2): 1.330 T Score Values are as follows: ----- L1: -0.8 ----- L2: 1.6 ----- L3: 1.6 ----- L4: 2.4 ----- L1-L4: 1.2 Bone mineral density has: Decreased -0.9% since study of: 02/25/2020 Bone mineral density about the R hip (g/cm2): 0.830 Bone mineral density about the L hip (g/cm2): 0.842 T Score values are as follows: -----R Neck: -1.5 -----L Neck: -1.4 -----R Total: -1.1 -----L Total: -0.5 Bone mineral density has: Decreased -4.7% since study of: 02/25/2020 FRAX%s: The graph provided illustrates a 10.6% chance for a major osteoporotic fx and a 1.8% chance f or the hips probability for fx in 10 years time. IMPRESSION: Osteopenia (T Score between -2.5 and -1). There is slightly increased risk of fracture and the patient may be considered for treatment. Re-Screen 2-5 years. NOTE: T-SCORE=SD OF THE YOUNG ADULT MEAN.
== END | disposition home or self-care (01) ==
LOC: RADBDWWP 07:52
PROVIDERS: ATTEND Family Medicine
DX: M85.89 Other specified disorders of bone density and structure, multiple sites (principal); Z78.0 Asymptomatic menopausal state
CPT/HCPCS: 77080

== ENCOUNTER → 2022-07-04 | Outpatient (CLI) | payer MEDICARE ==
[2022-07-04 11:16] LABS: Chol/HDL Ratio 2.55 Ratio; LDL Cholesterol,Calculated 60.7 mg/dL (0.0-131.0)
== END | disposition home or self-care (01) ==
LOC: LABWHC1 07:16
PROVIDERS: ATTEND Family Medicine
DX: E11.9 Type 2 diabetes mellitus without complications (principal)
CPT/HCPCS: 36415; 80061; 83036; 84439; 84443

== ENCOUNTER → 2023-01-23 | Outpatient (CLI) | payer MEDICARE ==
[2023-01-23 18:26] LABS: Basophils # (A) 0.04 X 10*3/uL (0.00-0.10); Basophils % (A) 0.8 %; Eosinophils # (A) 0.08 X 10*3/uL (0.04-0.35); Eosinophils % (A) 1.7 %; HCT 41.9 % (37.2-46.3); HGB 13.6 g/dL (12.0-15.0); Lymphocytes # (A) 1.82 X 10*3/uL (0.90-5.00); Lymphocytes % (A) 37.6 %; MCH 30.8 pg (27.0-32.0); MCHC 32.5 g/dL (32.0-37.0); MCV 94.8 FL (80.0-97.0); Mean Platelet Volume 10.9 FL (9.5-12.2); Monocytes # (A) 0.37 X 10*3/uL (0.20-1.00); Monocytes % (A) 7.6 %; NRBC Per 100 WBC 0 X 10*3/uL (0.00-0.01); Neutrophils # (A) 2.52 X 10*3/uL (1.80-7.70); Neutrophils % (A) 52.1 %; Platelet Count 169 X 10*3/uL (140-440); RBC 4.42 X 10*6/uL (4.10-5.20); RDW 13.2 % (11.5-14.5); WBC 4.84 X 10*3/uL (4.50-10.00)
[2023-01-23 18:29] LABS: ALT 14 U/L (8-44); AST 19 U/L (13-35); Albumin 4.3 g/dL (3.8-4.9); Albumin/Globulin Ratio 1.87 Ratio (1.60-3.17); Alkaline Phosphatase 52 U/L (41-126); BUN/Creat Ratio 18.14 Ratio (12.00-20.00); Blood Urea Nitrogen 12.7 mg/dL (9.0-27.0); Calcium 9.8 mg/dL (8.7-10.3); Carbon Dioxide 27.2 mmol/L (21.6-31.8); Chloride 107 mmol/L (96-109); Globulin 2.3 g/dL (1.6-3.3); Glucose 97 mg/dL (70-110); LDL Cholesterol,Calculated 51.7 mg/dL (0.0-131.0); Potassium 4.4 mmol/L (3.5-5.5); Sodium 145 mmol/L (135-145); Total Bilirubin 1.1 mg/dL (0.3-1.2); Total Protein 6.6 g/dL (6.2-8.2)
== END | disposition home or self-care (01) ==
LOC: LABWHC1 12:28
PROVIDERS: ATTEND Family Medicine
DX: E78.5 Hyperlipidemia, unspecified (principal)
CPT/HCPCS: 36415; 80053; 80061; 83036; 85025

== ENCOUNTER → 2023-02-28 | Outpatient (CLI) | payer MEDICARE ==
--- NOTE | 2023-03-01 20:10 | MM ---
Reason for Exam: Screening (asymptomatic). Last mammogram was performed 1 year(s) and 3 month(s) ago. Patient History: Menarche at age 11. First Full-Term at age 32. Late child-bearing (after 30). Postmenopausal. Patient has history of breast feeding. Patient used Estrogen for 1 year. Patient used Hormonal Contraceptives for 6 years. Risk Values: Nichole 5 year model risk: 2.4%. NCI Lifetime model risk: 5.9%. Prior Study Comparison: 11/08/2018 Bilateral Screening Mammogram, [facility]. 02/25/2020 Bilateral Screening Mammogram, [facility]. 11/29/2021 Bilateral MG 3D screening mammo w/cad, [facility]. Tissue Density: The breast tissue is heterogeneously dense. This may lower the sensitivity of mammography. Findings: Analyzed By CAD. There is no suspicious group of microcalcifications or new suspicious mass in either breast. Overall Assessment: Negative, BI-RAD 1 Management: Screening Mammogram of both breasts in 1 year. . Patient should continue monthly self-breast exams. A clinical breast exam by your physician is recommended on an annual basis. This exam should not preclude additional follow-up of suspicious palpable abnormalities. Note on Nichole scores and lifetime risk: 1. A Nichole score greater than 3% is considered moderate risk. If this is the case, consider specialist referral to assess eligibility for a risk reducing agent. 2. If overall lifetime risk for the development of breast cancer is 20% or higher, the patient may qualify for future screening with alternating mammogram and breast MRI. Electronically signed and approved by: Luis Bond M.D. Radiologist
== END | disposition home or self-care (01) ==
LOC: RADMAMWWP 08:19
PROVIDERS: ATTEND Family Medicine
DX: Z12.31 Encounter for screening mammogram for malignant neoplasm of breast (principal); Z78.0 Asymptomatic menopausal state
CPT/HCPCS: 77063; 77067

== ENCOUNTER → 2023-10-12 | Outpatient (CLI) | payer MEDICARE | END | disposition home or self-care (01) | LOC: LABWHC1 07:30 | PROVIDERS: ATTEND Family Medicine | DX: E11.65 Type 2 diabetes mellitus with hyperglycemia (principal) | CPT/HCPCS: 36415; 83036 ==

== ENCOUNTER → 2024-04-28 | Outpatient (CLI) | payer MEDICARE ==
[2024-04-28 15:05] LABS: ALT 13 U/L (8-44); AST 20 U/L (13-35); Albumin 4.2 g/dL (3.8-4.9); Albumin/Globulin Ratio 1.75 Ratio (1.60-3.17); Alkaline Phosphatase 59 U/L (41-126); BUN/Creat Ratio 15.25 Ratio (12.00-20.00); Blood Urea Nitrogen 12.2 mg/dL (9.0-27.0); Calcium 9.5 mg/dL (8.7-10.3); Carbon Dioxide 26.6 mmol/L (21.6-31.8); Chloride 105 mmol/L (96-109); Globulin 2.4 g/dL (1.6-3.3); Glucose 185 mg/dL (70-110); LDL Cholesterol,Calculated 51.8 mg/dL (0.0-131.0); Potassium 4.1 mmol/L (3.5-5.5); Sodium 143 mmol/L (135-145); Total Bilirubin 1.2 mg/dL (0.3-1.2); Total Protein 6.6 g/dL (6.2-8.2)
[2024-04-28 15:06] LABS: Basophils # (A) 0.05 X 10*3/uL (0.00-0.10); Eosinophils % (A) 3.8 %; HCT 40.5 % (37.2-46.3); HGB 12.9 g/dL (12.0-15.0); Lymphocytes # (A) 1.51 X 10*3/uL (0.90-5.00); Lymphocytes % (A) 28.8 %; MCH 30.7 pg (27.0-32.0); MCHC 31.9 g/dL (32.0-37.0); MCV 96.4 FL (80.0-97.0); Mean Platelet Volume 11.3 FL (9.5-12.2); Monocytes # (A) 0.43 X 10*3/uL (0.20-1.00); Monocytes % (A) 8.2 %; NRBC Per 100 WBC 0 X 10*3/uL (0.00-0.01); Neutrophils # (A) 3.03 X 10*3/uL (1.80-7.70); Neutrophils % (A) 57.8 %; Platelet Count 170 X 10*3/uL (140-440); WBC 5.24 X 10*3/uL (4.50-10.00)
== END | disposition home or self-care (01) ==
LOC: LABWHC1 11:57
PROVIDERS: ATTEND Family Medicine
DX: E11.65 Type 2 diabetes mellitus with hyperglycemia (principal)
CPT/HCPCS: 36415; 80053; 80061; 83036; 85025

== ENCOUNTER → 2024-06-23 | Outpatient (CLI) | payer MEDICARE ==
--- NOTE | 2024-06-23 08:38 | BD ---
EXAMINATION TYPE: Axial Bone Density DATE OF EXAM: 06/23/2024 CLINICAL HISTORY: 74 years old Female. ICD-10 CODE: Z78.0ASYMPTOMATIC MENOPAUSAL STATE , Additional History: Height: 61.5 Weight: 169 FRAX RISK QUESTIONS: Secondary Osteoporosis: RISK FACTORS HISTORY OF: MEDICATIONS: Thyroid Medications: Which medication: Synthroid How Lon+ years EXAM MEASUREMENTS: Bone mineral densitometry was performed using the [employer] System. Bone mineral density as measured about the Lumbar spine is: ----- L1-L4(G/cm2): 1.277 T Score Values are as follows: ----- L1: -0.7 ----- L2: 0.4 ----- L3: 1.6 ----- L4: 1.5 ----- L1-L4: 0.8 Z Score Values are as follows: ----- L1: 0.7 ----- L2: 1.8 ----- L3: 3.0 ----- L4: 2.9 ----- L1-L4: 2.2 Bone mineral density has: Decreased -4.0% since study of: 03-17-22 Bone mineral density about the R hip (g/cm2): 0.839 Bone mineral density about the L hip (g/cm2): 0.880 T Score values are as follows: -----R Neck: -1.9 -----L Neck: -1.8 -----R Total: -1.3 -----L Total: -1.0 Z Score values are as follows: -----R Neck: -0.2 -----L Neck: -0.1 -----R Total: 0.1 -----L Total: 0.5 Bone mineral density has: Decreased -4.9% since study of: 03-17-22 FRAX%s: The graph provided illustrates a 12.2% chance for a major osteoporotic fx and a 2.9% chance f or the hips probability for fx in 10 years time. IMPRESSION: Osteopenia (T Score between -2.5 and -1) remains present. There remains slightly increased risk of fracture and the patient may be considered for treatment. Re-Screen 2-5 years. NOTE: T-SCORE=SD OF THE YOUNG ADULT MEAN. [facility], , 06/23/2024 8:35 AM
--- NOTE | 2024-06-23 09:18 | MM ---
Reason for Exam: Screening (asymptomatic). Last mammogram was performed 1 year(s) and 4 month(s) ago. Patient History: Menarche at age 11. First Full-Term at age 32. Late child-bearing (after 30). Postmenopausal. Patient has history of breast feeding. Patient used Estrogen for 1 year. Patient used Hormonal Contraceptives for 6 years. Risk Values: Nichole 5 year model risk: 2.4%. NCI Lifetime model risk: 5.3%. Prior Study Comparison: 02/25/2020 Bilateral Screening Mammogram, [facility]. 11/29/2021 Bilateral MG 3D screening mammo w/cad, [facility]. 02/28/2023 Bilateral MG 3D screening mammo w/cad, [facility]. Tissue Density: There are scattered areas of fibroglandular density. Findings: Analyzed By CAD. There are small benign-appearing round calcifications scattered throughout the right breast. There is no suspicious group of microcalcifications or new suspicious mass in either breast. Overall Assessment: Benign, BI-RAD 2 Management: Screening Mammogram of both breasts in 1 year. . Patient should continue monthly self-breast exams. A clinical breast exam by your physician is recommended on an annual basis. This exam should not preclude additional follow-up of suspicious palpable abnormalities. Note on Nichole scores and lifetime risk: 1. A Nichole score greater than 3% is considered moderate risk. If this is the case, consider specialist referral to assess eligibility for a risk reducing agent. 2. If overall lifetime risk for the development of breast cancer is 20% or higher, the patient may qualify for future screening with alternating mammogram and breast MRI. [facility], , 06/23/2024 9:15 AM. Electronically signed and approved by: Jamshid Menezes M.D.
== END | disposition home or self-care (01) ==
LOC: RADBDWWP 08:08
PROVIDERS: ATTEND Family Medicine
DX: Z12.31 Encounter for screening mammogram for malignant neoplasm of breast (principal); M85.89 Other specified disorders of bone density and structure, multiple sites; R92.323 Mammographic fibroglandular density, bilateral breasts; R92.1 Mammographic calcification found on diagnostic imaging of breast; Z92.0 Personal history of contraception; Z78.0 Asymptomatic menopausal state
CPT/HCPCS: 77063; 77067; 77080

== ENCOUNTER → 2024-08-11 | Outpatient (CLI) | payer MEDICARE ==
[2024-08-11 15:36] LABS: Basophils # (A) 0.08 X 10*3/uL (0.00-0.10); Basophils % (A) 1.4 %; Eosinophils # (A) 0.25 X 10*3/uL (0.04-0.35); Eosinophils % (A) 4.5 %; HCT 37.9 % (37.2-46.3); Lymphocytes # (A) 1.66 X 10*3/uL (0.90-5.00); MCH 30.2 pg (27.0-32.0); MCHC 31.7 g/dL (32.0-37.0); MCV 95.5 FL (80.0-97.0); Mean Platelet Volume 10.8 FL (9.5-12.2); Monocytes # (A) 0.46 X 10*3/uL (0.20-1.00); Monocytes % (A) 8.3 %; NRBC Per 100 WBC 0 X 10*3/uL (0.00-0.01); Neutrophils # (A) 3.07 X 10*3/uL (1.80-7.70); Neutrophils % (A) 55.6 %; Platelet Count 198 X 10*3/uL (140-440); RBC 3.97 X 10*6/uL (4.10-5.20); RDW 13.4 % (11.5-14.5); WBC 5.53 X 10*3/uL (4.50-10.00)
[2024-08-11 15:58] LABS: ALT 10 U/L (8-44); AST 18 U/L (13-35); Albumin 4.2 g/dL (3.8-4.9); Alkaline Phosphatase 55 U/L (41-126); BUN/Creat Ratio 14.25 Ratio (12.00-20.00); Blood Urea Nitrogen 11.4 mg/dL (9.0-27.0); Carbon Dioxide 24.9 mmol/L (21.6-31.8); Chloride 106 mmol/L (96-109); Globulin 2.1 g/dL (1.6-3.3); Glucose 133 mg/dL (70-110); Potassium 4.3 mmol/L (3.5-5.5); Sodium 143 mmol/L (135-145); Total Bilirubin 1.2 mg/dL (0.3-1.2); Total Protein 6.3 g/dL (6.2-8.2)
== END | disposition home or self-care (01) ==
LOC: LABWHC1 12:28
PROVIDERS: ATTEND Family Medicine
DX: E11.65 Type 2 diabetes mellitus with hyperglycemia (principal)
CPT/HCPCS: 36415; 80053; 83036; 84439; 84443; 85025